=== PATIENT | male | born 1950 | race Two or more races ===

== ENCOUNTER 2018-02-24 10:14 | Outpatient (CLI) | payer MEDICARE, BC ==
[~2018-02-24] VITALS: Ht 157.5 cm; Wt 90.3 kg
[~2018-02-24 10:14] MED LIST: IBUPROFEN600 MG ORAL; NORCO 5-325 TA1 EACH ORAL; ROBAXIN-750750 MG PO
[2018-02-24] MEDS ORDERED: PLAVIX75 MG ORAL (10:52)
[2018-02-24] MEDS ORDERED: ATORVASTATIN CA10 MG ORAL (10:52)
[2018-02-24 12:11] VITALS: BP 126/89
--- NOTE | 2018-02-24 16:30 | GI Initial Consult Note ---
History of Present Illness General Date patient seen: Feb 24, 2018 Time patient seen: 16:26 Referring physician: KIRK Reason for Consultation: SCREENING COLONOSCOPY Present Illness HPI 67 year old male referred by Dr. Herrera presents today for screening colonoscopy, in addition requesting EGD as well. Last EGD/colonoscopy performed in 2012 with colonic polyps. Also has complaint of occasional constipation. Denies any unintentional weight loss or changes in dietary habits. No signs of abuse or neglect. Patient is not fall risk. Home Meds Reported Medications Clopidogrel Bisulfate* (PLAVIX*) 75 Mg Tablet, 75 MG ORAL QWEEK, TAB 02/24/18 Atorvastatin Calcium* (LIPITOR*) 10 Mg Tablet, ORAL BEDTIME, TAB 02/24/18 Discontinued Scripts Methocarbamol* (ROBAXIN-750*) 750 Mg Tablet, 750 MG PO TID, #21 TAB 0 Refills Prov:Marielena Rodriguez DO 04/24/14 Hydrocodone Bit/Acetaminophen 5-325* (NORCO 5-325*) 1 Each Tablet, 1 TAB ORAL Q6H PRN for For Pain, #20 TAB Prov:Marielena Rodriguez DO 04/24/14 Ibuprofen* (MOTRIN*) 600 Mg Tablet, 600 MG ORAL Q8H PRN for For Pain, #30 TAB Prov:Marielena Rodriguez DO 04/24/14 Med list reviewed/reconciled: Yes Allergies: Coded Allergies: No Known Allergies (Unverified , 04/24/14) Patient History History Provided By: Patient, Medical Record PMH Narrative HLD CAD Past Surgical History: Cardiac Stent 2007 Tonsillectomy 2007 Family History Narrative Father/Mother >> N/A Sister >> breast CA Brother >> Blood CA Social History Narrative ETOH occasional Tobacco quit coffee Review of Systems All Other Systems: negative except mentioned in HPI Physical Exam Vital Signs Date Time Temp Pulse Resp B/P (MAP) Pulse Ox O2 Delivery O2 Flow Rate FiO2 02/24/18 12:11 98.5 76 16 126/89 96 98.5 Sp02 EP Interpretation: reviewed, normal General Appearance: well appearing, no apparent distress, alert Head: normocephalic EENT: PERRL/EOMI, normal ENT inspection Neck: supple Respiratory: normal breath sounds, no respiratory distress Cardiovascular: normal rate Gastrointestinal: normal inspection, non tender, soft, normal bowel sounds, non -distended Rectal: deferred Genitourinary: deferred Musculoskeletal: normal inspection, back normal Neurologic: normal inspection, alert, oriented x3, responsive Psychiatric: normal inspection, judgement/insight normal, memory normal Skin: normal inspection, normal color, no rash, warm/dry, palpation normal, well hydrated Lymphatic: normal inspection, no adenopathy GI: Plan Problems: (1) Colonoscopy planned (2) Constipation Plan EGD/colonoscopy scheduled 03/02/18. - CLD & (Nulytely/Suprep/Movi-Prep) prep instructions given and acknowledged by patient. - NPO @ [place] day prior procedure explained. - Plavix must be stopped 3 days prior procedure. Seen with Dr. Rivers. Thank you for this patient referral. Nette Araujo N.P. Feb 24, 2018 16:30
== END 2018-02-24 10:49 | disposition home or self-care (01) ==
LOC: PAN 10:14
DX: K59.00 Constipation, unspecified (principal); Z86.010 Personal history of colon polyps; I25.10 Atherosclerotic heart disease of native coronary artery without angina pectoris; E78.5 Hyperlipidemia, unspecified; Z95.5 Presence of coronary angioplasty implant and graft; Z80.3 Family history of malignant neoplasm of breast; Z80.8 Family history of malignant neoplasm of other organs or systems; Z80.9 Family history of malignant neoplasm, unspecified
CPT/HCPCS: 99201

== ENCOUNTER 2018-03-02 07:18 | Day surgery (SDC) | payer MEDICARE, BC ==
[2018-03-02] VITALS (8 sets, daily range): BP systolic 99–122; BP diastolic 71–86
[~2018-03-02] VITALS: Ht 170.2 cm; Wt 86.2 kg
[~2018-03-02 07:18] MED LIST changes: +ATORVASTATIN CA10 MG ORAL; +PLAVIX75 MG ORAL
--- NOTE | 2018-03-02 08:32 | Pre-Procedure Note/Attestation ---
Pre-Procedure Note/Attestation Complete Prior to Procedure Planned Procedure: not applicable Procedure Narrative: esophagogastroduodenoscopy and colonoscopy Indications for Procedure Pre-Operative Diagnosis: screening colon, GERD Attestation I attest that I discussed the nature of the procedure; its benefits; risks and complications; and alternatives (and the risks and benefits of such alternatives ), prior to the procedure, with the patient (or the patient's legal textiles sales representative). I attest that, if there was a reasonable possibility of needing a blood transfusion, the patient (or the patient's legal textiles sales representative) was given the [facility] standardized written summary, pursuant to the [place] Blood Safety Act ([place] Health and Safety Code # 1645, as amended). I attest that I re-evaluated the patient just prior to the surgery and that there has been no change in the patient's H&P, except as documented below: WILIAN GLORIA Mar 02, 2018 08:32
--- NOTE | 2018-03-02 08:32 | Short Stay Surgery H&P ---
History of Present Illness History of Present Illness Chief Complaint see recent ofice consult note HPI Buddy Mercedes is a 67 year old male who was admitted on for Abdominal Pain Patient History Allergies: Coded Allergies: No Known Allergies (Unverified , 02/27/18) Medication History Scheduled Atorvastatin Calcium* (Lipitor*), 40 MG ORAL BEDTIME, (Reported) Clopidogrel Bisulfate* (Plavix*), 75 MG ORAL QWEEK, (Reported) Discontinued Medications Hydrocodone Bit/Acetaminophen 5-325* (Flora 5-325*), 1 TAB ORAL Q6H PRN for For Pain Discontinued Reason: MD discontinued med Ibuprofen* (Motrin*), 600 MG ORAL Q8H PRN for For Pain Discontinued Reason: MD discontinued med Methocarbamol* (Robaxin-750*), 750 MG PO TID Discontinued Reason: MD discontinued med Physical Exam Vital Signs Last Vital Signs Date Time Temp Pulse Resp B/P (MAP) Pulse Ox O2 Delivery O2 Flow Rate FiO2 03/02/18 07:52 98.2 87 18 119/82 94 Room Air 98.2 Plan Attestation Are the patient's medical conditions optimized for surgery? WILIAN GLORIA Mar 02, 2018 08:32
[2018-03-02] MEDS ORDERED: LR 1000ml 1,000 ML IVLG SCH (08:55)
--- NOTE | 2018-03-02 08:59 | Anethesia Preoperative Eval ---
Anesthesia Pre-op PMH/ROS General Date of Evaluation: Mar 02, 2018 Time of Evaluation: 08:30 Anesthesiologist: Cristel ASA Score: ASA 3 Mallampati Score Class I : Soft palate, uvula, fauces, pillars visible Class II: Soft palate, uvula, fauces visible Class III: Soft palate, base of uvula visible Class IV: Only hard plate visible Mallampati Classification: Class II Surgeon: Silvestre Diagnosis: Screening Surgical Procedure: EGD, Colonoscopy Family History: no anesthesia problems Allergies: Coded Allergies: No Known Allergies (Unverified , 02/27/18) Medications: see eMAR Past Medical History Cardiovascular: Reports: CAD, MA; Denies: HTN, valve dz, arrhythmia, other Pulmonary: Reports: EDUARDA; Denies: asthma, COPD, other Gastrointestinal/Genitourinary: Denies: GERD, CRI, ESRD, other Neurologic/Psychiatric: Denies: dementia, CVA, depression/anxiety, TIA, other Endocrine: Denies: DM, hypothyroidism, steroids, other HEENT: Denies: cataract (L), cataract (R), glaucoma, HOOPA (L), HOOPA (R), other Hematology/Immune: Denies: anemia, DVT, bleeding disorder, other Musculoskeletal/Integumentary: Denies: OA, RA, DJD, DDD, edema, other PMH Narrative: CAD, MA PSxH Narrative: Coronary stents 10 years ago, uvulectomy Anesthesia Pre-op Phys. Exam Physician Exam Last Vital Signs Date Time Temp Pulse Resp B/P (MAP) Pulse Ox O2 Delivery O2 Flow Rate FiO2 03/02/18 07:52 98.2 87 18 119/82 94 Room Air 98.2 Constitutional: NAD Neurologic: CN 2-12 intact Cardiovascular: RRR Gastrointestinal: S/NT/ND Airway Exam Mallampati Score: Class II MO: full ROM: full Teeth: intact Anesthesia Pre-op A/P Studies Pre-op Studies: EKG - SR, possible IWMI Risk Assessment & Plan Assessment: No contraindication for screening EGD, Colonoscopy Plan: GA, TIVA Status Change Before Surgery: No Pre-Antibiotics Drug: None Melchor Fam MD Mar 02, 2018 08:59
[2018-03-02] MEDS ORDERED: fentaNYL 100 mcg/2 mL IV PRN (09:00)
--- NOTE | 2018-03-02 09:00 | Immediate Post-Op Evaluation ---
Immediate Post-Op Evalulation Immediate Post-Op Evalulation Procedure: EGD, Colonoscopy Date of Evaluation: Mar 02, 2018 Time of Evaluation: 09:20 IV Fluids: 600 Blood Pressure Systolic: 101 Blood Pressure Diastolic: 71 Pulse Rate: 73 Respiratory Rate: 17 O2 Sat by Pulse Oximetry: 98 Temperature (Fahrenheit): 97.6 Pain Score (1-10): 0 Nausea: No Vomiting: No Complications No complication Patient Status: awake, patent, none Hydration Status: adequate Drug: None Melchor Fam MD Mar 02, 2018 09:00
--- NOTE | 2018-03-02 09:10 | Endoscopy Procedure Note ---
Endoscopy Procedure Note General Indication for Procedure: screening colonoscopy, GERD Procedures Performed: EGD, colonoscopy Operative Findings/Diagnosis: gastritis, hemorrhoids, 3 polyps Specimen: yes Pt Tolerated Procedure Well: Yes Estimated Blood Loss: none Anesthesia Anesthesiologist: indra Anesthesia: MAC Inserted Devices Implant(s) used?: No Quality Quality of Bowel Preparation: Excellent Did scope reach the cecum?: Yes Was there any complications?: No GI Core Measures 50 yrs or older w/o bx or poly: No 10yrs. F/U not recommended: Yes If not recommended, why?: Above average risk 10 yrs. F/U needed: Yes 18 years or older w/prev. colo: No WILIAN GLORIA Mar 02, 2018 09:10
--- NOTE | 2018-03-02 09:22 | 48 Hour Post Anesthesia Eval ---
Post Anesthesia Evaluation Procedure: EGD, Colonoscopy Date of Evaluation: Mar 02, 2018 Time of Evaluation: 09:40 Blood Pressure Systolic: 117 0: 75 Pulse Rate: 73 Respiratory Rate: 18 O2 Sat by Pulse Oximetry: 99 Airway: patent Nausea: No Vomiting: No Pain Intensity: 0 Hydration Status: adequate Cardiopulmonary Status: Stable Mental Status/LOC: patient returned to baseline Follow-up Care/Observations: As per GI Post-Anesthesia Complications: No anesthetic complication Follow-up care needed: N/A Melchor Fam MD Mar 02, 2018 09:22
--- NOTE | 2018-03-02 14:30 | Procedure Note ---
DATE OF PROCEDURE: 03/02/2018 SURGEON: Ren Rivers M.D. PROCEDURE: Upper endoscopy with biopsy and colonoscopy with biopsy. ANESTHESIA: . INSTRUMENT: Olympus adult flexible upper endoscope and colonoscope. INDICATION: Screening colonoscopy evaluation, chronic GERD. REASON FOR PROCEDURE: Procedure, risks, benefits, and possible consequences, including hemorrhage, aspiration, perforation and infection, and alternative treatments, were explained to the patient/legal guardian by Dr. Ren Rivers and the patient/legal guardian understood and accepted these risks. DESCRIPTION OF PROCEDURE: After informed consent was obtained and the patient was adequately sedated, Olympus upper endoscope was advanced to mouth into the second portion of the duodenum and retroflexion performed of stomach. The patient has had evidence of diffuse gastritis. Random biopsy from antrum and body was obtained to rule out H. pylori infection. Otherwise, the rest of the upper endoscopic examination was within normal limits. At this time, the upper endoscope was retrieved. The patient was turned over for colonoscopy. First, a rectal exam was performed, which was normal. Then, the scope was advanced from the rectum into the cecum documented by the appendiceal orifice, ileocecal valve, and upper quadrant palpation. Quality of prep was very good. The patient had one diminutive polyp in the descending colon and 2 rectal polyps and also very small. All 3 of them removed with the cold biopsy forceps technique. Retroflexion in the rectum showed evidence of medium-sized nonbleeding internal hemorrhoid. FINDINGS: 1. Diffuse gastritis, status post biopsy. 2. Three colonic polyps removed, see above for details. 3. Internal hemorrhoid. RECOMMENDATIONS: 1. Follow up biopsies and treat accordingly. 2. We will recommend repeat colonoscopy in 5 years. Ren Rivers M.D. DR: KEANU JOB#: [id number] CC:
== END 2018-03-02 11:15 | disposition home or self-care (01) ==
LOC: GAS 07:18
DX: Z12.11 Encounter for screening for malignant neoplasm of colon (principal); K21.9 Gastro-esophageal reflux disease without esophagitis; K29.70 Gastritis, unspecified, without bleeding; K63.5 Polyp of colon; K64.8 Other hemorrhoids; I25.10 Atherosclerotic heart disease of native coronary artery without angina pectoris; I25.2 Old myocardial infarction; G47.33 Obstructive sleep apnea (adult) (pediatric); Z95.5 Presence of coronary angioplasty implant and graft
CPT/HCPCS: 93005; 94003; 94150

== ENCOUNTER 2018-06-16 09:07 | Outpatient (CLI) | payer MEDICARE, BC ==
[2018-06-16 09:24] VITALS: BP 124/83
[2018-06-16] MEDS ORDERED: ASPIRIN EC81 MG ORAL (09:26)
--- NOTE | 2018-06-16 09:28 | GI Progress Note ---
Assessment/Plan Problems: (1) H. pylori infection ICD Codes: A04.8 - Other specified bacterial intestinal infections SNOMED: 710239325 (2) Constipation ICD Codes: K59.00 - Constipation, unspecified SNOMED: 27896546 Status: stable Status Narrative Seen with Dr. Rivers. Assessment/Plan 1. Diffuse gastritis, status post biopsy. 2. Three colonic polyps removed, see above for details. 3. Internal hemorrhoid. s/p H. Pylori treatment RECOMMENDATIONS: repeat Breath Test today >> RTC if results are positive, otherwise prn We will recommend repeat colonoscopy in 5 years. The patient was seen and examined at bedside and all new and available data was reviewed in the patients chart. I agree with the above findings, impression and plan. (Patient seen earlier today. Signature stamp does not reflect patient encounter time.). - Ren Rivers MD Subjective Subjective constipation resolved Objective Last 24 Hour Vital Signs Date Time Temp Pulse Resp B/P (MAP) Pulse Ox O2 Delivery O2 Flow Rate FiO2 06/16/18 09:24 97.8 68 16 124/83 96 97.8 General Appearance: WD/WN, no apparent distress, alert Cardiovascular: normal rate Respiratory/Chest: normal breath sounds, no respiratory distress Abdominal Exam: normal bowel sounds, non tender, soft Extremities: normal range of motion, non-tender Jacinta Araujo NP Jun 16, 2018 09:28
== END 2018-06-16 09:40 | disposition home or self-care (01) ==
LOC: PAN 09:07
DX: K59.00 Constipation, unspecified (principal); A04.8 Other specified bacterial intestinal infections; K29.70 Gastritis, unspecified, without bleeding; Z86.010 Personal history of colon polyps; K64.8 Other hemorrhoids
CPT/HCPCS: 83013; G0463; 99212

== ENCOUNTER 2018-10-20 08:59 | Outpatient (CLI) | payer MEDICARE, BC ==
[~2018-10-20 08:59] MED LIST changes: +ASPIRIN EC81 MG ORAL
[2018-10-20 10:39] VITALS: BP 140/90
--- NOTE | 2018-10-20 16:14 | GI Progress Note ---
Assessment/Plan Problems: (1) H. pylori infection ICD Codes: A04.8 - Other specified bacterial intestinal infections SNOMED: 557947183 Status: stable Status Narrative Seen with Dr. Rivers. Assessment/Plan s/p BT tx triple therapy >> repeat BT is positive repeat H. Pylori tx using quadruple therapy RTC after tx for repeat BT The patient was seen and examined at bedside and all new and available data was reviewed in the patients chart. I agree with the above findings, impression and plan. (Patient seen earlier today. Signature stamp does not reflect patient encounter time.). - Ren Rivers MD Subjective Gastrointestinal/Abdominal: Reports: no symptoms Objective Last 24 Hour Vital Signs Date Time Temp Pulse Resp B/P (MAP) Pulse Ox O2 Delivery O2 Flow Rate FiO2 10/20/18 10:39 98.9 79 16 140/90 95 General Appearance: WD/WN, no apparent distress, alert Cardiovascular: normal rate Respiratory/Chest: normal breath sounds, no respiratory distress Abdominal Exam: normal bowel sounds, non tender, soft Extremities: normal range of motion, non-tender Jacinta Araujo [employer] Oct 20, 2018 16:14
== END 2018-10-20 09:29 | disposition home or self-care (01) ==
LOC: PAN 08:59
DX: A04.8 Other specified bacterial intestinal infections (principal)
CPT/HCPCS: 99212

== ENCOUNTER 2019-01-19 09:01 | Outpatient (CLI) | payer MEDICARE, BC ==
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
[2019-01-19 12:19] VITALS: BP 118/86
== END 2019-01-19 11:00 | disposition home or self-care (01) ==
LOC: PAN 09:01
DX: K59.00 Constipation, unspecified (principal); A04.8 Other specified bacterial intestinal infections; K64.9 Unspecified hemorrhoids; K63.5 Polyp of colon; V89.2XXA Person injured in unspecified motor-vehicle accident, traffic, initial encounter
CPT/HCPCS: 83013; G0463